=== PATIENT | female | born 1990 | race Caucasian/White ===

== ENCOUNTER 2024-08-24 14:03 | Emergency (ER) | payer OTHER ==
[~2024-08-24] VITALS: Ht 170.2 cm; Wt 59.1 kg
[2024-08-24 14:07] VITALS: TEMP 97.8
[2024-08-24 15:45] LABS: BASOPHILS % (AUTO) 0.4 % (0.0-2.0); EOSINOPHILS % (AUTO) 0.2 % (1.0-6.0); HEMATOCRIT 39.9 % (36-46); LYMPHOCYTES # (AUTO) 0.8 K/uL (1.0-4.8); LYMPHOCYTES % (AUTO) 27.4 % (22.0-44.0); MEAN CORPUSCULAR HEMOGLOBIN 32.7 pg (26.0-34.0); MEAN CORPUSCULAR HGB CONC 32.6 G/dL (31.0-37.0); MEAN CORPUSCULAR VOLUME 100 fL (80-100); MONOCYTES # (AUTO) 0.3 K/uL (0.1-1.0); MONOCYTES % (AUTO) 9.6 % (2.0-9.0); NEUTROPHILS # (AUTO) 1.8 K/uL (1.8-7.7); NEUTROPHILS % (AUTO) 62.4 % (40.0-70.0); PLATELET COUNT (AUTO) 152 K/uL (150-450); RED BLOOD CELL COUNT(AUTO) 3.98 MIL/uL (4.00-5.20); RED CELL DISTRIBUTION WIDTH 14.5 % (11.5-14.5); WHITE BLOOD COUNT (AUTO) 2.9 K/uL (4.5-11.0)
[2024-08-24 15:55] LABS: ANION GAP 11 mmol/L (8-16); CALCIUM, TOTAL 8.3 mg/dL (8.8-10.5); CARBON DIOXIDE 29 mmol/L (22-29); CHLORIDE 102 mmol/L (98-107); CREATININE 0.93 mg/dL (0.60-1.30); GLOMERULAR FILTR. RATE CALC > 60 mL/min (>60); GLUCOSE,RANDOM 88 mg/dL (70-110); POTASSIUM 3.7 mmol/L (3.5-5.1); SODIUM SERUM 142 mmol/L (136-145); UREA NITROGEN, BLOOD 3 mg/dL (7-18)
[2024-08-24] MEDS: SODIUM CHLORIDE 0.9% 1,000 ML IV ONE (15:56)
[2024-08-24] MEDS: LIDOCAINE/PF 1% 2 ML VIAL IM ONE (16:07)
[2024-08-24] MEDS: CefTRIAXone SODIUM 1 GM/VIAL IM ONE (16:07)
[2024-08-24] MEDS: ChlordiazePOXIDE HCL 25 MG CAPSULE PO ONE (16:08)
[2024-08-24] MEDS: AZITHROMYCIN 500 MG TABLET PO ONE (16:08)
[2024-08-24 16:19] LABS: RBC MORPHOLOGY COMMENT ABNORMAL RBC MORPH
[2024-08-24 16:22] LABS: PH,URINE DRUG SCREEN 6.5 (5.0-8.0)
[2024-08-24 16:30] LABS: ALCOHOL, URINE DRUG SCREEN POSITIVE (NEGATIVE); AMPHET/METH SCREEN,URINE NEGATIVE (NEGATIVE); BARBITURATE SCREEN, URINE NEGATIVE (NEGATIVE); BENZODIAZEPINES SCREEN,URINE NEGATIVE (NEGATIVE); CANNABINOID SCREEN,URINE POSITIVE (NEGATIVE); COCAINE SCREEN,URINE NEGATIVE (NEGATIVE); METHADONE SCREEN, URINE NEGATIVE (NEGATIVE); OPIATE SCREEN,URINE NEGATIVE (NEGATIVE); PHENCYCLIDINE SCREEN,URINE NEGATIVE (NEGATIVE)
[2024-08-24] MEDS: ONDANSETRON 4 MG RAPDIS TABLET PO ONE (16:37)
[2024-08-24] MEDS: LORazepam 1 MG TABLET PO ONE (17:49)
[2024-08-24 17:55] VITALS: BP 123/87; PULSE 94; RESP 18; O2SAT 99
[2024-08-24] MEDS ORDERED: CHLO10CA7 PO (18:10)
[2024-08-24] MEDS: FAMOTIDINE 20 MG/2 ML VIAL IVP ONE (18:25)
[2024-08-24] MEDS: METOCLOPRAMIDE HCL 5 MG/ML 2 ML VIAL IVP ONE (18:43)
[2024-08-24] MEDS ORDERED: ONDA-104 PO (19:38)
== END 2024-08-24 19:42 | disposition home or self-care (01) ==
LOC: EMS 14:07
DX: F10.229 Alcohol dependence with intoxication, unspecified (principal); K29.20 Alcoholic gastritis without bleeding; F41.9 Anxiety disorder, unspecified; R44.0 Auditory hallucinations; Z59.41 Food insecurity; Z59.00 Homelessness unspecified; Y90.9 Presence of alcohol in blood, level not specified
CPT/HCPCS: 99284; 96374; 96361; 96375; 80048; 84703; 85025; 36415; 96372; 80307; G0480; J0456; J0696; J3490 ×2; J2765; J7030

== ENCOUNTER 2024-10-15 16:45 | Emergency (ER) | payer MEDICAID, OTHER ==
[~2024-10-15] VITALS: Ht 167.6 cm; Wt 59.1 kg
[~2024-10-15 16:45] MED LIST: CHLO10CA7 PO; ONDA-104 PO
[2024-10-15 16:50] VITALS: BP 122/76; PULSE 98; RESP 18; TEMP 98.3; O2SAT 99
== END 2024-10-15 18:04 | disposition left against medical advice (07) ==
LOC: EMS 16:45
DX: S61.311A Laceration without foreign body of left index finger with damage to nail, initial encounter (principal); Z53.21 Procedure and treatment not carried out due to patient leaving prior to being seen by health care provider; W26.8XXA Contact with other sharp object(s), not elsewhere classified, initial encounter; Y93.89 Activity, other specified; Y92.89 Other specified places as the place of occurrence of the external cause; Y99.8 Other external cause status

== ENCOUNTER 2024-11-26 11:58 | Emergency (ER) | payer MEDICAID ==
[~2024-11-26] VITALS: Ht 167.6 cm; Wt 59.1 kg
[2024-11-26 12:17] VITALS: TEMP 98.4
[2024-11-26 12:53] LABS: BASOPHILS % (AUTO) 0.6 % (0.0-2.0); HEMATOCRIT 39.2 % (36-46); HEMOGLOBIN 13.2 g/dL (12.0-16.0); LYMPHOCYTES # (AUTO) 0.9 K/uL (1.0-4.8); LYMPHOCYTES % (AUTO) 25.4 % (22.0-44.0); MEAN CORPUSCULAR HGB CONC 33.6 G/dL (31.0-37.0); MEAN CORPUSCULAR VOLUME 104 fL (80-100); MONOCYTES # (AUTO) 0.3 K/uL (0.1-1.0); MONOCYTES % (AUTO) 8.7 % (2.0-9.0); NEUTROPHILS # (AUTO) 2.2 K/uL (1.8-7.7); NEUTROPHILS % (AUTO) 64.3 % (40.0-70.0); PLATELET COUNT (AUTO) 120 K/uL (150-450); RED BLOOD CELL COUNT(AUTO) 3.77 MIL/uL (4.00-5.20); RED CELL DISTRIBUTION WIDTH 14.5 % (11.5-14.5); WHITE BLOOD COUNT (AUTO) 3.4 K/uL (4.5-11.0)
[2024-11-26 13:04] LABS: ANION GAP 11 mmol/L (8-16); CALCIUM, TOTAL 8.3 mg/dL (8.8-10.5); CARBON DIOXIDE 28 mmol/L (22-29); CHLORIDE 103 mmol/L (98-107); CREATININE 0.94 mg/dL (0.60-1.30); GLOMERULAR FILTR. RATE CALC > 60 mL/min (>60); GLUCOSE,RANDOM 94 mg/dL (70-110); POTASSIUM 3.4 mmol/L (3.5-5.1); SODIUM SERUM 142 mmol/L (136-145); UREA NITROGEN, BLOOD 5 mg/dL (7-18)
[2024-11-26 13:09] LABS: ALBUMIN 3.7 g/dL (3.4-5.0); BILIRUBIN,TOTAL 2.3 mg/dL (0.1-1.0); TOTAL PROTEIN, SERUM 7.3 g/dL (6.4-8.2)
[2024-11-26] MEDS: SODIUM CHLORIDE 0.9% 1,000 ML IV ONE (13:16)
[2024-11-26] MEDS: ONDANSETRON HCL 4 MG/2 ML VIAL IVP ONE (13:17)
[2024-11-26 13:35] LABS: ALCOHOL, URINE DRUG SCREEN POSITIVE (NEGATIVE); AMPHET/METH SCREEN,URINE NEGATIVE (NEGATIVE); BARBITURATE SCREEN, URINE NEGATIVE (NEGATIVE); BENZODIAZEPINES SCREEN,URINE NEGATIVE (NEGATIVE); CANNABINOID SCREEN,URINE POSITIVE (NEGATIVE); COCAINE SCREEN,URINE NEGATIVE (NEGATIVE); METHADONE SCREEN, URINE NEGATIVE (NEGATIVE); OPIATE SCREEN,URINE NEGATIVE (NEGATIVE); PHENCYCLIDINE SCREEN,URINE NEGATIVE (NEGATIVE)
[2024-11-26 13:35] LABS: RBC MORPHOLOGY COMMENT ABNORMAL RBC MORPH
[2024-11-26] MEDS: ClonazePAM 1 MG TABLET PO ONE (14:04)
[2024-11-26] MEDS: POTASSIUM CHLORIDE 20 MEQ ER TABLET PO ONE (14:58)
[2024-11-26] MEDS: MAGNESIUM SULFATE 2 GM/WATER 50 ML IV ONE (14:58)
[2024-11-26] MEDS: METOCLOPRAMIDE HCL 10 MG TABLET PO ONE (15:10)
[2024-11-26] MEDS: ChlordiazePOXIDE HCL 25 MG CAPSULE PO ONE (15:10)
[2024-11-26] MEDS ORDERED: NALT50TA33 PO (15:14)
[2024-11-26] MEDS ORDERED: GABA-1181 PO (15:14)
[2024-11-26] MEDS ORDERED: ONDA-104 PO (15:25)
[2024-11-26 15:26] VITALS: BP 144/83; PULSE 72; RESP 18; O2SAT 98
[2024-11-26] MEDS ORDERED: METOCLOPRAMIDE HCL 5 MG/ML 2 ML VIAL ONE (15:44)
[2024-11-26] MEDS: METOCLOPRAMIDE HCL 5 MG/ML 2 ML VIAL IVP ONE (15:48)
== END 2024-11-26 17:18 | disposition home or self-care (01) ==
LOC: EMS 11:59
DX: F10.129 Alcohol abuse with intoxication, unspecified (principal); F41.9 Anxiety disorder, unspecified; R11.2 Nausea with vomiting, unspecified; Z79.899 Other long term (current) drug therapy; Y90.4 Blood alcohol level of 80-99 mg/100 ml
CPT/HCPCS: 99284; 96365; 96375; 96361; 80048; 80076; 82140; 83690; 83735; 84703; 85025; 36415; 80307; G0480; J2765; J2405; J3475; 99283